=== PATIENT | female | born 1965 | race Caucasian/White ===

== ENCOUNTER 2020-04-15 11:42 | Emergency (ER) | payer BC ==
[~2020-04-15] VITALS: Ht 154.9 cm; Wt 77.1 kg
--- NOTE | 2020-04-15 12:20 | Emergency Department Note ---
History of Present Illnes History of Present Illness Chief Complaint: Abdominal Complaints History of Present Illness This is a 54 year old female arrived to the ED with complaints of significant abdominal pain. Patient states she called Dr. Lane's office and was instructed and have the ED physician page Dr. Lane. Patient states she is having another small bowel obstruction. Patient states her last bowel movement was 1 week ago. Patient states she needs pain medication urgently and cannot wait in the lobby. Historian: Patient Arrival Mode: Car Certified Diabetes Educator Required: No Onset (how long ago): day(s) Severity: mild Duration (how long): day(s) Timing of current episode: constant Progression: unchanged Relieving factors: none Exacerbating factors: none Past Medical/Family History Physician Review I have reviewed the patient's past medical and family history. Any updates have been documented here. Past Medical History Recent Fever: No Clinical Suspicion of Infectio: No New/Unexplained Change in Ment: No Past Medical History: Hypertension, CAD Past Surgical History: Family History Family history of heart diseas: Yes Review of Systems Review of Systems Constitutional: Reports no symptoms EENTM: Reports no symptoms Cardiovascular: Reports no symptoms Respiratory: Reports no symptoms Gastrointestinal: Reports as per HPI, Reports abdominal pain, Reports nausea, Reports vomiting Genitourinary: Reports no symptoms Musculoskeletal: Reports no symptoms Integumentary: Reports no symptoms Neurological: Reports no symptoms Psychological: Reports no symptoms Endocrine: Reports no symptoms Hematological/Lymphatic: Reports no symptoms Physical Exam Related Data Allergies: Coded Allergies: Acetaminophen (Verified Allergy, Mild, 02/20/08) Codeine (Verified Allergy, Mild, 02/20/08) Hydrocodone (Verified Allergy, Mild, 02/20/08) Ketorolac (Verified Allergy, Mild, 02/20/08) Morphine (Verified Allergy, Mild, 02/20/08) Sulfa (Sulfonamides) (Verified Allergy, Mild, 02/20/08) Tetracycline (Verified Allergy, Mild, 02/20/08) Triage Vital Signs Vital Signs Date Time Temp Pulse Resp B/P (MAP) Pulse Ox O2 Delivery O2 Flow Rate FiO2 04/15/20 11:54 99.5 95 16 15/81 95 Vital signs reviewed: Yes Physical Exam CONSTITUTIONAL Constitutional: Present well-developed, Present well-nourished HENT HENT: Present normocephalic, Present atraumatic, Present oropharynx clear/moist, Present nose normal HENT L/R: Present left ext ear normal, Present right ext ear normal EYES Eyes: Reports PERRL, Reports conjunctivae normal NECK Neck: Present ROM normal PULMONARY Pulmonary: Present effort normal, Present breath sounds normal CARDIOVASCULAR Cardiovascular: Present regular rhythm, Present heart sounds normal, Present capillary refill normal, Present normal rate GASTROINTESTINAL Abdominal: Present soft, Present bowel sounds normal, Present tender GENITOURINARY Genitourinary: Present exam deferred SKIN Skin: Present warm, Present dry MUSCULOSKELETAL Musculoskeletal: Present ROM normal NEUROLOGICAL Neurological: Present alert, Present oriented x 3, Present no gross motor or sensory deficits PSYCHOLOGICAL Psychological: Present mood/affect normal, Present judgement normal Results Laboratory Lab results reviewed: Yes Imaging Imaging results reviewed: Yes Assessment & Plan Medical Decision Making MDM Department female who complains of abdominal pain, states she is having a small bowel obstruction. Patient requested Dr. Lane the patient immediately. Patient informed that the ED will be doing lab work and imaging subsequently general surgery will be complicated for further workup and management. Patient states she does not want to wait in the waiting room and wished to be taken back-on the stretcher. Patient informed she will be taken back to a stretcher as soon as one becomes available if properly cleaned, patient states she would rather go home and she does not want to sit in the waiting room. Patient hemodynamically stable abdominal exam is benign, Dr. Lane was informed of patient's visit. Assessment & Plan Final Impression: (1) Abdominal pain Depart Disposition: HOME, SELF-CARE Last Vital Signs Date Time Temp Pulse Resp B/P (MAP) Pulse Ox O2 Delivery O2 Flow Rate FiO2 04/15/20 11:54 99.5 95 16 15/81 95 NAPOLEON LIZAMA DO Apr 15, 2020 12:02
== END 2020-04-15 12:00 | disposition home or self-care (01) ==
LOC: ER 11:42
DX: R10.30 Lower abdominal pain, unspecified (principal); R11.2 Nausea with vomiting, unspecified; I10 Essential (primary) hypertension; I25.10 Atherosclerotic heart disease of native coronary artery without angina pectoris
CPT/HCPCS: 99281

== ENCOUNTER → 2024-08-03 | Day surgery (SDC) | payer BC ==
[2024-07-31 13:53] LABS: BASOPHILS # (AUTO) 0.1 (0.0-0.1); BASOPHILS % 1.3 % (0.0-1.0); EOSINOPHILS # (AUTO) 0.2 (0.0-0.4); EOSINOPHILS % 3.5 % (0.0-6.0); HEMATOCRIT 44.1 % (34.2-44.1); LYMPHOCYTES # (AUTO) 1.8 (1.0-3.2); LYMPHOCYTES % 38.8 % (18.0-39.1); MEAN CORPUSCULAR HEMOGLOBIN 30.8 pg (28-32); MEAN CORPUSCULAR HGB CONC 31.7 g/dL (31-35); MEAN CORPUSCULAR VOLUME 97.1 fL (81-99); MONOCYTES # (AUTO) 0.4 (0.2-0.8); MONOCYTES % 9.4 % (4.4-11.3); NEUTROPHILS # (AUTO) 2.1 (2.1-6.9); NEUTROPHILS % 46.8 % (38.7-80.0); PLATELET COUNT 146 x10e3/uL (140-360); RED BLOOD COUNT 4.54 x10e6/uL (3.6-5.1); RED CELL DISTRIBUTION WIDTH 12.2 % (11.7-14.4); WHITE BLOOD COUNT 4.56 x10e3/uL (4.8-10.8)
[2024-07-31 14:13] LABS: CALCIUM 9.1 mg/dL (8.4-10.2); CREATININE, SERUM 0.77 mg/dL (0.57-1.11)
[~2024-08-03] MED LIST: ACETAMINOPHEN 1000 MG/100 ML IV ONE; AMLODIPINE BESYL5 MG PO; ATIVAN0.5 MG PO; BUPIVACAINE 0.25% 30ML SDV ONE; COREG12.5 MG PO; DEXAMETHASONE SOD PHOS INJ 4 MG/ML SDV ONE; DEXMEDETOMIDINE HCL 200 MCG/2 ML VIAL ONE; FENTANYL CITRATE/PF 100MCG/2 ML INJ ONE; GABAPENTIN100 MG PO; GLYCOPYRROLATE INJ 0.2 MG/ML VIAL ONE; KETOROLAC TROMETHAMINE 30 MG/ML VIAL ONE; LEXAPRO20 MG PO; LIDOCAINE HCL 2% LOCAL INJ 5 ML SDV VIAL INJ ONE; LIPITOR10 MG PO; LOSARTAN POTASS25 MG PO; MIDAZOLAM HCL 2 MG/2 ML VIAL ONE; NEOSTIGMINE 1 MG/ML 10ML VIAL ONE; ONDANSETRON HCL INJ 2MG/ML 2ML 2 MG/ML VIAL ONE; OZEMPIC0.25 MG/02 SC; PROPOFOL IV EMULSION 10 MG/ML 20 ML VIAL ONE; ROCURONIUM BROMIDE 10 MG/ML 5ML VIAL IV ONE; SEVOFLURANE INHAL SOLN 250 ML PEN BTL ONE; TRAZODONE HCL100 MG PO; ZETIA10 MG PO
[2024-08-03] MEDS: LACTATED RINGER'S 1,000 ML ONE (08:15)
[2024-08-03 11:17] VITALS: TEMP 97.8
[2024-08-03 12:15] VITALS: BP 120/79; PULSE 84; RESP 18; O2SAT 98
== END | disposition home or self-care (01) ==
LOC: OR 07:01
PROVIDERS: ATTEND Surgery
DX: K43.6 Other and unspecified ventral hernia with obstruction, without gangrene (principal); I10 Essential (primary) hypertension; E11.9 Type 2 diabetes mellitus without complications; K57.90 Diverticulosis of intestine, part unspecified, without perforation or abscess without bleeding; F41.9 Anxiety disorder, unspecified; F32.A Depression, unspecified; F17.200 Nicotine dependence, unspecified, uncomplicated; Z88.6 Allergy status to analgesic agent; Z88.1 Allergy status to other antibiotic agents; Z88.2 Allergy status to sulfonamides; Z01.810 Encounter for preprocedural cardiovascular examination; Z01.812 Encounter for preprocedural laboratory examination; Z01.818 Encounter for other preprocedural examination; Z79.02 Long term (current) use of antithrombotics/antiplatelets; Z79.85 Long-term (current) use of injectable non-insulin antidiabetic drugs; Z79.899 Other long term (current) drug therapy
CPT/HCPCS: 36415; 49594; 71046; 80048; 85025; 93005; C1781; J2250; J2710; J3010; J7121; J1100; J1885; J2003; J2405